=== PATIENT | male | born 1965 | race Two or more races ===

== ENCOUNTER 2022-12-25 04:30 | Day surgery (SDC) | payer BC ==
[2022-12-22 16:22] VITALS: BMI 34.7
[2022-12-25] MEDS ORDERED: ONDANSETRON 4 MG/2 ML VIAL IVPUSH PRN (06:43)
[2022-12-25] MEDS ORDERED: ACETAMINOPHEN 325 MG TABLET (FP) PO PRN (06:43)
[2022-12-25] MEDS ORDERED: oxyCODONE HCL 5 MG TABLET PO PRN (06:43)
[2022-12-25] MEDS ORDERED: LACTATED RINGERS SOLUTION 1,000 ML IV SCH (06:45)
[2022-12-25] MEDS ORDERED: LIDOCAINE HCL 1%, 10 MG/ML (10ML VIAL) MDV ONE ×2 (07:10→07:31)
[2022-12-25] MEDS ORDERED: BUPIVACAINE HCL/PF 0.5% (5MG/ML) 10 ML VIAL ONE (07:10)
[2022-12-25] MEDS ORDERED: PROPOFOL 40 ML ONE (07:18)
[2022-12-25] MEDS ORDERED: ceFAZolin SODIUM 1 GM VIAL ONE (07:18)
[2022-12-25] MEDS ORDERED: DEXAMETHASONE SOD PHOSPHATE 4 MG/1 ML VIAL ONE (07:18)
[2022-12-25] MEDS ORDERED: KETOROLAC TROMETHAMINE 30 MG/1 ML VIAL ONE (07:18)
[2022-12-25] MEDS ORDERED: MIDAZOLAM HCL 2 MG/2 ML SINGLE DOSE VIAL ONE (07:18)
[2022-12-25] MEDS ORDERED: ONDANSETRON 4 MG/2 ML VIAL ONE (07:18)
[2022-12-25] MEDS ORDERED: BUPIVACAINE HCL/PF 0.25% (2.5MG/ML) 10 ML VIAL ONE (07:31)
[2022-12-25] MEDS ORDERED: ceFAZolin SODIUM 1 GM VIAL IVPB ONE (07:40)
[2022-12-25] MEDS ORDERED: LIDOCAINE HCL/PF 2% SDV 5ML VIAL ONE (07:42)
[2022-12-25] MEDS ORDERED: BUPIVACAINE HCL/PF 0.25% (2.5MG/ML) 10 ML VIAL IJ ONE ×2 (07:52)
[2022-12-25] MEDS ORDERED: LIDOCAINE HCL 1%, 10 MG/ML (20ML VIAL) INF ONE ×2 (07:52)
[2022-12-25 09:25] VITALS: RESP 20; TEMP 97.8
[2022-12-25 09:30] VITALS: BP 125/82; PULSE 56
== END 2022-12-25 09:26 | disposition home or self-care (01) ==
LOC: JASU-SURG 04:30
PROVIDERS: ATTEND Student in an Organized Health Care Education/Training Program
PROC: 07BJ0ZX Excision of Left Inguinal Lymphatic, Open Approach, Diagnostic (ICD-10-PCS; principal; 2022-12-25 07:30)
DX: C85.15 Unspecified B-cell lymphoma, lymph nodes of inguinal region and lower limb (principal)
CPT/HCPCS: 88305-TC; 94760

== ENCOUNTER 2023-02-01 08:17 | Day surgery (SDC) | payer BC ==
[2023-02-01] MEDS ORDERED: FOSAPREPITANT DIMEGLUMINE 150 MG in SODIUM CHLORIDE 145 ML IVPB ONE (09:00)
[2023-02-01] MEDS ORDERED: ACETAMINOPHEN 325 MG TABLET (FP) PO ONE (09:00)
[2023-02-01] MEDS ORDERED: DEXAMETHASONE SODIUM PHOSPHATE 10 MG in SODIUM CHLORIDE 50 ML IVPB ONE (09:00)
[2023-02-01] MEDS ORDERED: PALONOSETRON HCL 0.25 MG/5 ML VIAL IVPUSH ONE (09:00)
[2023-02-01] MEDS ORDERED: SODIUM CHLORIDE 1,000 ML IV ONE (09:00)
[2023-02-01] MEDS ORDERED: diphenhydrAMINE HCL 25 MG CAPSULE (FP) PO ONE (09:00)
[2023-02-01] MEDS ORDERED: SODIUM CHLORIDE IVPB ONE ×2 (09:30→11:30)
[2023-02-01] MEDS ORDERED: RITUXIMAB ABBS IVPB ONE (09:30)
[2023-02-01 10:00] LABS: BASO % 0.4 % (0-2.0); EOS % 4.6 % (0-4.5); HEMATOCRIT 43.7 % (35.4-49); LYMPH % 29.4 % (8-40); MCH 30.2 pg (25.7-33.7); MCHC 34.3 g/dl (32.0-35.9); MEAN CELL VOLUME 88.3 fl (80-96); MEAN PLT VOLUME 9.3 fl (7.5-11.1); MONO % 10.9 % (3.8-10.2); NEUT % 54.7 % (42.8-82.8); PLATELET COUNT 235 10^3/uL (134-434); RBC 4.95 M/mm3 (4.00-5.60); RDW 13.9 % (11.9-15.9); WHITE BLOOD COUNT 6.1 K/mm3 (4.0-10.0)
[2023-02-01 10:19] LABS: CALCIUM 9.2 mg/dL (8.5-10.1)
[2023-02-01 10:20] LABS: ALBUMIN 3.7 g/dl (3.4-5.0); BLOOD UREA NITROGEN 12.3 mg/dL (7-18)
[2023-02-01 10:22] LABS: BILIRUBIN,DIRECT 0.1 mg/dL (0.0-0.2); PHOSPHOROUS 2.6 mg/dL (2.5-4.9); URIC ACID 7.1 mg/dL (2.6-7.2)
[2023-02-01 10:24] LABS: BILIRUBIN,TOTAL 0.3 mg/dL (0.2-1); TOT PROT 6.9 g/dl (6.4-8.2)
[2023-02-01] MEDS ORDERED: DOXOrubicin HCL 50 MG/25 ML VIAL IV ONE (11:00)
[2023-02-01] MEDS ORDERED: CYCLOPHOSPHAMIDE IVPB ONE (11:30)
[2023-02-01] MEDS ORDERED: vinCRIStine SULFATE 2 MG in SODIUM CHLORIDE 25 ML IVPB ONE (12:00)
[2023-02-01] MEDS ORDERED: POTASSIUM CHLORIDE 10 MEQ, MAGNESIUM SULFATE 1 GM in SODIUM CHLORIDE 1,000 ML IVPB ONE (12:00)
[2023-02-01] MEDS ORDERED: PORTA CATH FLUSH 10 ML IVPUSH PRN (17:22)
[2023-02-01 17:33] VITALS: RESP 19
[2023-02-01 18:50] VITALS: BP 155/89; PULSE 73; TEMP 98.1
== END 2023-02-01 18:50 | disposition home or self-care (01) ==
LOC: JONCCHEMO 08:17
PROVIDERS: ATTEND Internal Medicine Hematology & Oncology
DX: Z51.11 Encounter for antineoplastic chemotherapy (principal); C85.15 Unspecified B-cell lymphoma, lymph nodes of inguinal region and lower limb
CPT/HCPCS: 36415; 80053; 80076; 83615; 84100; 84550; 85025; 96367; 96375; 96411; 96413; 96415; 96417; J1453; J2469; J9070; J9370; Q5115

== ENCOUNTER 2023-02-02 13:13 | Day surgery (SDC) | payer BC ==
[~2023-02-02 13:13] MED LIST: PEGFILGRASTIM-CBQV (UDENYCA) 6 MG/0.6 ML SYRINGE SQ ONE
[2023-02-02 16:16] VITALS: BP 151/92; PULSE 68; RESP 18; TEMP 98
== END 2023-02-02 16:10 | disposition home or self-care (01) ==
LOC: JONCCHEMO 13:13
PROVIDERS: ATTEND Internal Medicine Hematology & Oncology
PROC: 3E013GC Introduction of Other Therapeutic Substance into Subcutaneous Tissue, Percutaneous Approach (ICD-10-PCS; principal; 2023-02-02)
DX: C85.15 Unspecified B-cell lymphoma, lymph nodes of inguinal region and lower limb (principal); Z76.89 Persons encountering health services in other specified circumstances
CPT/HCPCS: 96372; Q5111

== ENCOUNTER 2023-02-22 07:36 | Day surgery (SDC) | payer BC ==
[2023-02-22] MEDS ORDERED: SODIUM CHLORIDE 1,000 ML IV ONE (08:15)
[2023-02-22] MEDS ORDERED: ACETAMINOPHEN 325 MG TABLET (FP) PO ONE (08:45)
[2023-02-22] MEDS ORDERED: PALONOSETRON HCL 0.25 MG/5 ML VIAL IVPUSH ONE (08:45)
[2023-02-22] MEDS ORDERED: diphenhydrAMINE HCL 25 MG CAPSULE (FP) PO ONE (08:45)
[2023-02-22] MEDS ORDERED: DEXAMETHASONE SODIUM PHOSPHATE 10 MG in SODIUM CHLORIDE 50 ML IVPB ONE (08:45)
[2023-02-22] MEDS ORDERED: FOSAPREPITANT DIMEGLUMINE 150 MG in SODIUM CHLORIDE 145 ML IVPB ONE (08:45)
[2023-02-22 08:50] LABS: BASO % 1.4 % (0-2.0); EOS % 0.6 % (0-4.5); HEMATOCRIT 40.9 % (35.4-49); HEMOGLOBIN 14.1 GM/dL (11.7-16.9); MCH 30.2 pg (25.7-33.7); MCHC 34.5 g/dl (32.0-35.9); MEAN CELL VOLUME 87.7 fl (80-96); MEAN PLT VOLUME 8.6 fl (7.5-11.1); MONO % 12.9 % (3.8-10.2); NEUT % 47.1 % (42.8-82.8); PLATELET COUNT 522 10^3/uL (134-434); RBC 4.66 M/mm3 (4.00-5.60); RDW 13.9 % (11.9-15.9); WHITE BLOOD COUNT 11.8 K/mm3 (4.0-10.0)
[2023-02-22 08:59] LABS: POTASSIUM 4.4 mmol/L (3.5-5.1)
[2023-02-22 09:01] LABS: CALCIUM 9.3 mg/dL (8.5-10.1)
[2023-02-22 09:02] LABS: ALBUMIN 3.5 g/dl (3.4-5.0); BLOOD UREA NITROGEN 13.3 mg/dL (7-18)
[2023-02-22 09:04] LABS: BILIRUBIN,DIRECT 0.1 mg/dL (0.0-0.2)
[2023-02-22 09:05] LABS: CREATININE 1.1 mg/dL (0.55-1.3); PHOSPHOROUS 3.6 mg/dL (2.5-4.9)
[2023-02-22 09:06] LABS: TOT PROT 7.3 g/dl (6.4-8.2)
[2023-02-22 09:07] LABS: BILIRUBIN,TOTAL 0.3 mg/dL (0.2-1)
[2023-02-22 09:11] LABS: URIC ACID 5.9 mg/dL (2.6-7.2)
[2023-02-22] MEDS ORDERED: RITUXIMAB ABBS IVPB ONE (09:15)
[2023-02-22] MEDS ORDERED: SODIUM CHLORIDE IVPB ONE ×2 (09:15→12:30)
[2023-02-22] MEDS ORDERED: DOXOrubicin HCL 50 MG/25 ML VIAL IV ONE (12:15)
[2023-02-22] MEDS ORDERED: CYCLOPHOSPHAMIDE IVPB ONE (12:30)
[2023-02-22] MEDS ORDERED: vinCRIStine SULFATE 2 MG in SODIUM CHLORIDE 25 ML IVPB ONE (13:00)
[2023-02-22] MEDS ORDERED: POTASSIUM CHLORIDE 10 MEQ, MAGNESIUM SULFATE 1 GM in SODIUM CHLORIDE 1,000 ML IVPB ONE (13:15)
[2023-02-22] MEDS ORDERED: PORTA CATH FLUSH 10 ML IVPUSH PRN (16:42)
[2023-02-22 17:00] VITALS: RESP 20; TEMP 98.4
[2023-02-22 18:14] VITALS: BP 148/84; PULSE 83
== END 2023-02-22 18:15 | disposition home or self-care (01) ==
LOC: JONCCHEMO 07:36 → J7W 07:36 → JONCCHEMO 18:15
PROVIDERS: ATTEND Internal Medicine Hematology & Oncology
DX: Z51.11 Encounter for antineoplastic chemotherapy (principal); C83.35 Diffuse large B-cell lymphoma, lymph nodes of inguinal region and lower limb
CPT/HCPCS: 36415; 80048; 80076; 83615; 84100; 84550; 85025; 96367; 96375; 96413; 96415; 96417; J1453; J2469; J9070; J9370; Q5115

== ENCOUNTER 2023-02-23 13:45 | Day surgery (SDC) | payer BC ==
[2023-02-23 18:14] VITALS: BP 157/94; PULSE 75; RESP 20; TEMP 97.9
== END 2023-02-23 16:25 | disposition home or self-care (01) ==
LOC: JONCCHEMO 13:45
PROVIDERS: ATTEND Internal Medicine Hematology & Oncology
PROC: 3E013GC Introduction of Other Therapeutic Substance into Subcutaneous Tissue, Percutaneous Approach (ICD-10-PCS; principal; 2023-02-23)
DX: C83.35 Diffuse large B-cell lymphoma, lymph nodes of inguinal region and lower limb (principal); Z76.89 Persons encountering health services in other specified circumstances
CPT/HCPCS: 96372; Q5111

== ENCOUNTER 2023-03-15 07:49 | Day surgery (SDC) | payer BC ==
[2023-03-15 07:57] LABS: BASO % 1.2 % (0-2.0); HEMATOCRIT 37.5 % (35.4-49); HEMOGLOBIN 13.5 GM/dL (11.7-16.9); LYMPH % 39.4 % (8-40); MCH 31.5 pg (25.7-33.7); MCHC 35.9 g/dl (32.0-35.9); MEAN CELL VOLUME 87.9 fl (80-96); MEAN PLT VOLUME 8.2 fl (7.5-11.1); MONO % 12.4 % (3.8-10.2); PLATELET COUNT 339 10^3/uL (134-434); RBC 4.27 M/mm3 (4.00-5.60); RDW 14.7 % (11.9-15.9); WHITE BLOOD COUNT 8.5 K/mm3 (4.0-10.0)
[2023-03-15 08:11] LABS: POTASSIUM 4.2 mmol/L (3.5-5.1)
[2023-03-15 08:14] LABS: ALBUMIN 3.7 g/dl (3.4-5.0); BLOOD UREA NITROGEN 7.9 mg/dL (7-18); CALCIUM 8.9 mg/dL (8.5-10.1)
[2023-03-15 08:16] LABS: BILIRUBIN,DIRECT 0.1 mg/dL (0.0-0.2)
[2023-03-15 08:17] LABS: CREATININE 0.9 mg/dL (0.55-1.3); PHOSPHOROUS 3.1 mg/dL (2.5-4.9); URIC ACID 5.6 mg/dL (2.6-7.2)
[2023-03-15 08:18] LABS: BILIRUBIN,TOTAL 0.4 mg/dL (0.2-1)
[2023-03-15] MEDS ORDERED: SODIUM CHLORIDE 1,000 ML IV ONE (09:00)
[2023-03-15] MEDS ORDERED: DEXAMETHASONE SODIUM PHOSPHATE 10 MG in SODIUM CHLORIDE 50 ML IVPB ONE (09:30)
[2023-03-15] MEDS ORDERED: FOSAPREPITANT DIMEGLUMINE 150 MG in SODIUM CHLORIDE 145 ML IVPB ONE (09:30)
[2023-03-15] MEDS ORDERED: diphenhydrAMINE HCL 25 MG CAPSULE (FP) PO ONE (09:30)
[2023-03-15] MEDS ORDERED: ACETAMINOPHEN 325 MG TABLET (FP) PO ONE (09:30)
[2023-03-15] MEDS ORDERED: PALONOSETRON HCL 0.25 MG/5 ML VIAL IVPUSH ONE (09:30)
[2023-03-15] MEDS ORDERED: RITUXIMAB ABBS IVPB ONE (10:00)
[2023-03-15] MEDS ORDERED: SODIUM CHLORIDE IVPB ONE ×2 (10:00→13:30)
[2023-03-15] MEDS ORDERED: DOXOrubicin HCL 50 MG/25 ML VIAL IV ONE (13:00)
[2023-03-15] MEDS ORDERED: CYCLOPHOSPHAMIDE IVPB ONE (13:30)
[2023-03-15] MEDS ORDERED: vinCRIStine SULFATE 2 MG in SODIUM CHLORIDE 25 ML IVPB ONE (14:00)
[2023-03-15] MEDS ORDERED: POTASSIUM CHLORIDE 10 MEQ, MAGNESIUM SULFATE 1 GM in SODIUM CHLORIDE 1,000 ML IVPB ONE (14:30)
[2023-03-15] MEDS ORDERED: ONDANSETRON 4 MG/2 ML VIAL IVPB ONE (17:15)
[2023-03-15] MEDS ORDERED: PORTA CATH FLUSH 10 ML IVPUSH PRN (18:42)
[2023-03-15 18:43] VITALS: RESP 20
[2023-03-15 18:51] VITALS: BP 132/73; PULSE 74; TEMP 98
== END 2023-03-15 18:05 | disposition home or self-care (01) ==
LOC: JONCCHEMO 07:49 → J7W 07:49 → JONCCHEMO 18:05
PROVIDERS: ATTEND Internal Medicine Hematology & Oncology
DX: Z51.11 Encounter for antineoplastic chemotherapy (principal); C83.35 Diffuse large B-cell lymphoma, lymph nodes of inguinal region and lower limb
CPT/HCPCS: 36415; 80048; 80076; 83615; 84100; 84550; 85025; 96366; 96367; 96375; 96411; 96413; 96415; 96417; J1453; J2469; J9070; J9370; Q5115

== ENCOUNTER 2023-03-16 15:48 | Day surgery (SDC) | payer BC ==
[2023-03-16 18:04] VITALS: BP 133/79; PULSE 71; RESP 20; TEMP 98.4
== END 2023-03-16 15:55 | disposition home or self-care (01) ==
LOC: JONCCHEMO 15:48
PROVIDERS: ATTEND Internal Medicine Hematology & Oncology
PROC: 3E013GC Introduction of Other Therapeutic Substance into Subcutaneous Tissue, Percutaneous Approach (ICD-10-PCS; principal; 2023-03-16)
DX: C83.35 Diffuse large B-cell lymphoma, lymph nodes of inguinal region and lower limb (principal); Z76.89 Persons encountering health services in other specified circumstances
CPT/HCPCS: 96372; Q5111

== ENCOUNTER 2023-04-05 07:26 | Day surgery (SDC) | payer BC ==
[2023-04-05 07:42] LABS: BASO % 1.2 % (0-2.0); EOS % 1.1 % (0-4.5); HEMATOCRIT 37.3 % (35.4-49); HEMOGLOBIN 13.1 GM/dL (11.7-16.9); LYMPH % 33.5 % (8-40); MCH 31.7 pg (25.7-33.7); MCHC 35.1 g/dl (32.0-35.9); MEAN CELL VOLUME 90.3 fl (80-96); MEAN PLT VOLUME 7.9 fl (7.5-11.1); MONO % 10.4 % (3.8-10.2); NEUT % 53.8 % (42.8-82.8); PLATELET COUNT 342 10^3/uL (134-434); RBC 4.13 M/mm3 (4.00-5.60); RDW 17.4 % (11.9-15.9); WHITE BLOOD COUNT 8.8 K/mm3 (4.0-10.0)
[2023-04-05 07:55] LABS: POTASSIUM 3.7 mmol/L (3.5-5.1)
[2023-04-05 07:58] LABS: ALBUMIN 3.7 g/dl (3.4-5.0); CALCIUM 9.1 mg/dL (8.5-10.1)
[2023-04-05 07:59] LABS: BLOOD UREA NITROGEN 7.8 mg/dL (7-18)
[2023-04-05 08:01] LABS: BILIRUBIN,DIRECT 0.1 mg/dL (0.0-0.2); CREATININE 1.1 mg/dL (0.55-1.3); PHOSPHOROUS 3.5 mg/dL (2.5-4.9)
[2023-04-05 08:03] LABS: BILIRUBIN,TOTAL 0.3 mg/dL (0.2-1); TOT PROT 6.7 g/dl (6.4-8.2)
[2023-04-05 08:06] LABS: URIC ACID 6.4 mg/dL (2.6-7.2)
[2023-04-05] MEDS ORDERED: SODIUM CHLORIDE 1,000 ML IV ONE (08:15)
[2023-04-05] MEDS ORDERED: diphenhydrAMINE HCL 25 MG CAPSULE (FP) PO ONE (09:00)
[2023-04-05] MEDS ORDERED: PALONOSETRON HCL 0.25 MG/5 ML VIAL IVPUSH ONE (09:00)
[2023-04-05] MEDS ORDERED: ACETAMINOPHEN 325 MG TABLET (FP) PO ONE (09:00)
[2023-04-05] MEDS ORDERED: FOSAPREPITANT DIMEGLUMINE 150 MG in SODIUM CHLORIDE 145 ML IVPB ONE (09:00)
[2023-04-05] MEDS ORDERED: DEXAMETHASONE SODIUM PHOSPHATE 10 MG in SODIUM CHLORIDE 50 ML IVPB ONE (09:00)
[2023-04-05] MEDS ORDERED: SODIUM CHLORIDE IVPB ONE ×3 (09:30→13:00)
[2023-04-05] MEDS ORDERED: RITUXIMAB ABBS IVPB ONE (09:30)
[2023-04-05] MEDS ORDERED: DOXOrubicin HCL 50 MG/25 ML VIAL IV ONE (12:00)
[2023-04-05] MEDS ORDERED: vinCRIStine SULFATE 2 MG in SODIUM CHLORIDE 25 ML IVPB ONE (12:15)
[2023-04-05] MEDS ORDERED: CYCLOPHOSPHAMIDE IVPB ONE (12:30)
[2023-04-05] MEDS ORDERED: MAGNESIUM SULFATE IVPB ONE (13:00)
[2023-04-05] MEDS ORDERED: POTASSIUM CHLORIDE IVPB ONE (13:00)
[2023-04-05 16:46] VITALS: RESP 18; TEMP 97.7
[2023-04-05 17:13] VITALS: BP 139/81; PULSE 68
[2023-04-05] MEDS ORDERED: PORTA CATH FLUSH 10 ML IVPUSH PRN (17:13)
== END 2023-04-05 16:45 | disposition home or self-care (01) ==
LOC: JONCCHEMO 07:26 → J7W 07:27 → JONCCHEMO 16:45
PROVIDERS: ATTEND Internal Medicine Hematology & Oncology
DX: Z51.11 Encounter for antineoplastic chemotherapy (principal); C83.35 Diffuse large B-cell lymphoma, lymph nodes of inguinal region and lower limb
CPT/HCPCS: 36415; 80048; 80076; 83615; 84100; 84550; 85025; 96367; 96375; 96411; 96413; 96415; 96417; J1453; J2469; J9070; J9370; Q5115

== ENCOUNTER 2023-04-06 16:50 | Day surgery (SDC) | payer BC ==
[2023-04-06 18:20] VITALS: BP 147/86; PULSE 69; RESP 20; TEMP 98.1
== END 2023-04-06 17:48 | disposition home or self-care (01) ==
LOC: JONCCHEMO 16:50 → J7W 16:50 → JONCCHEMO 17:48
PROVIDERS: ATTEND Internal Medicine Hematology & Oncology
PROC: 3E013GC Introduction of Other Therapeutic Substance into Subcutaneous Tissue, Percutaneous Approach (ICD-10-PCS; principal; 2023-04-06)
DX: C83.35 Diffuse large B-cell lymphoma, lymph nodes of inguinal region and lower limb (principal); Z76.89 Persons encountering health services in other specified circumstances
CPT/HCPCS: 96372; Q5111

== ENCOUNTER 2023-04-26 07:20 | Day surgery (SDC) | payer BC ==
[2023-04-26 07:58] LABS: BASO % 1.3 % (0-2.0); HEMATOCRIT 37.1 % (35.4-49); HEMOGLOBIN 12.6 GM/dL (11.7-16.9); LYMPH % 31.7 % (8-40); MCHC 33.9 g/dl (32.0-35.9); MEAN CELL VOLUME 94.5 fl (80-96); MEAN PLT VOLUME 8.7 fl (7.5-11.1); MONO % 14.8 % (3.8-10.2); NEUT % 51.2 % (42.8-82.8); PLATELET COUNT 365 10^3/uL (134-434); RBC 3.92 M/mm3 (4.00-5.60); RDW 17.9 % (11.9-15.9); WHITE BLOOD COUNT 7.8 K/mm3 (4.0-10.0)
[2023-04-26 08:29] LABS: CHLORIDE 109 mmol/L (98-107); POTASSIUM 4.1 mmol/L (3.5-5.1); SODIUM 143 mmol/L (136-145)
[2023-04-26 08:37] LABS: ALBUMIN 3.4 g/dl (3.4-5.0); ANION GAP 5 MMOL/L (8-16); BLOOD UREA NITROGEN 10.4 mg/dL (7-18); CO2 29 mmol/L (21-32); GLUCOSE,RANDOM 110 mg/dL (74-106)
[2023-04-26 08:39] LABS: SGPT/ALT 33 U/L (13-61); URIC ACID 7.4 mg/dL (2.6-7.2)
[2023-04-26 08:40] LABS: BILIRUBIN,DIRECT < 0.1 mg/dL (0.0-0.2); LDH 153 U/L (87-246); PHOSPHOROUS 3.4 mg/dL (2.5-4.9); SGOT/AST 17 U/L (15-37)
[2023-04-26 08:46] LABS: ALK PHOS 78 U/L (45-117); BILIRUBIN,TOTAL 0.4 mg/dL (0.2-1); TOT PROT 6.5 g/dl (6.4-8.2)
[2023-04-26] MEDS ORDERED: SODIUM CHLORIDE 1,000 ML IV ONE (09:00)
[2023-04-26] MEDS ORDERED: ACETAMINOPHEN 325 MG TABLET (FP) PO ONE (09:30)
[2023-04-26] MEDS ORDERED: FOSAPREPITANT DIMEGLUMINE 150 MG in SODIUM CHLORIDE 145 ML IVPB ONE (09:30)
[2023-04-26] MEDS ORDERED: PALONOSETRON HCL 0.25 MG/5 ML VIAL IVPUSH ONE (09:30)
[2023-04-26] MEDS ORDERED: DEXAMETHASONE SODIUM PHOSPHATE 10 MG in SODIUM CHLORIDE 50 ML IVPB ONE (09:30)
[2023-04-26] MEDS ORDERED: diphenhydrAMINE HCL 25 MG CAPSULE (FP) PO ONE (09:30)
[2023-04-26] MEDS ORDERED: RITUXIMAB ABBS IVPB ONE (10:00)
[2023-04-26] MEDS ORDERED: SODIUM CHLORIDE IVPB ONE ×2 (10:00→14:15)
[2023-04-26] MEDS ORDERED: DOXOrubicin HCL 50 MG/25 ML VIAL IV ONE (14:00)
[2023-04-26] MEDS ORDERED: CYCLOPHOSPHAMIDE IVPB ONE (14:15)
[2023-04-26] MEDS ORDERED: vinCRIStine SULFATE 2 MG in SODIUM CHLORIDE 25 ML IVPB ONE (14:45)
[2023-04-26] MEDS ORDERED: MAGNESIUM 1GM/D5W - 1 GM/100 ML IVPB IVPB ONE (15:00)
[2023-04-26] MEDS ORDERED: SODIUM CHLORIDE 1,000 ML IVPB ONE (15:00)
[2023-04-26] MEDS ORDERED: KCL 10 MEQ IVPB 10 MEQ/100 ML INFUS.BAG IVPB ONE (15:00)
[2023-04-26 17:48] VITALS: RESP 18; TEMP 98.4
[2023-04-26] MEDS ORDERED: PORTA CATH FLUSH 10 ML IVPUSH PRN (17:48)
[2023-04-26 17:50] VITALS: BP 145/79; PULSE 78
== END 2023-04-26 17:20 | disposition home or self-care (01) ==
LOC: JONCCHEMO 07:20 → J7W 07:26 → JONCCHEMO 17:20
PROVIDERS: ATTEND Internal Medicine Hematology & Oncology
PROC: 3E04305 Introduction of Other Antineoplastic into Central Vein, Percutaneous Approach (ICD-10-PCS; principal; 2023-04-26)
PROC: 3E0437Z Introduction of Electrolytic and Water Balance Substance into Central Vein, Percutaneous Approach (ICD-10-PCS; 2023-04-26)
PROC: 3E043GC Introduction of Other Therapeutic Substance into Central Vein, Percutaneous Approach (ICD-10-PCS; 2023-04-26)
DX: Z51.11 Encounter for antineoplastic chemotherapy (principal); C83.35 Diffuse large B-cell lymphoma, lymph nodes of inguinal region and lower limb
CPT/HCPCS: 36415; 80048; 80076; 83615; 84100; 84550; 85025; 96361; 96367; 96375; 96409; 96411; 96413; 96415; 96417; J1453; J2469; J9070; J9370; Q5115

== ENCOUNTER 2023-04-27 15:20 | Day surgery (SDC) | payer BC ==
[2023-04-27 16:57] VITALS: BP 153/84; PULSE 79; RESP 20; TEMP 98.4
== END 2023-04-27 15:40 | disposition home or self-care (01) ==
LOC: JONCCHEMO 15:20
PROVIDERS: ATTEND Internal Medicine Hematology & Oncology
PROC: 3E013GC Introduction of Other Therapeutic Substance into Subcutaneous Tissue, Percutaneous Approach (ICD-10-PCS; principal; 2023-04-27)
DX: Z76.89 Persons encountering health services in other specified circumstances (principal); C83.35 Diffuse large B-cell lymphoma, lymph nodes of inguinal region and lower limb
CPT/HCPCS: 96372; Q5111

== ENCOUNTER 2023-05-17 07:17 | Day surgery (SDC) | payer BC ==
[2023-05-17 07:25] LABS: BASO % 1.1 % (0-2.0); EOS % 1.4 % (0-4.5); HEMATOCRIT 36.5 % (35.4-49); HEMOGLOBIN 12.5 GM/dL (11.7-16.9); LYMPH % 32.1 % (8-40); MCH 32.8 pg (25.7-33.7); MCHC 34.2 g/dl (32.0-35.9); MEAN CELL VOLUME 95.9 fl (80-96); MEAN PLT VOLUME 8.4 fl (7.5-11.1); MONO % 13.2 % (3.8-10.2); NEUT % 52.2 % (42.8-82.8); PLATELET COUNT 329 10^3/uL (134-434); RBC 3.81 M/mm3 (4.00-5.60); RDW 16.6 % (11.9-15.9); WHITE BLOOD COUNT 7.8 K/mm3 (4.0-10.0)
[2023-05-17] MEDS ORDERED: RITUXIMAB ABBS IVPB ONE (07:45)
[2023-05-17] MEDS ORDERED: MAGNESIUM 1GM/D5W - 1 GM/100 ML IVPB IVPB ONE ×2 (07:45→12:00)
[2023-05-17] MEDS ORDERED: SODIUM CHLORIDE IVPB ONE ×2 (07:45→11:15)
[2023-05-17 07:46] LABS: CHLORIDE 118 mmol/L (98-107); POTASSIUM 4.2 mmol/L (3.5-5.1); SODIUM 146 mmol/L (136-145)
[2023-05-17 07:48] LABS: ALBUMIN 3.4 g/dl (3.4-5.0); ANION GAP 2 MMOL/L (8-16); CALCIUM 8.3 mg/dL (8.5-10.1); CO2 26 mmol/L (21-32)
[2023-05-17 07:49] LABS: BLOOD UREA NITROGEN 9.4 mg/dL (7-18); GLUCOSE,RANDOM 120 mg/dL (74-106)
[2023-05-17 07:51] LABS: CREATININE 1.1 mg/dL (0.55-1.3); PHOSPHOROUS 2.5 mg/dL (2.5-4.9); SGOT/AST 12 U/L (15-37); SGPT/ALT 29 U/L (13-61); URIC ACID 7.6 mg/dL (2.6-7.2)
[2023-05-17 07:52] LABS: BILIRUBIN,DIRECT < 0.1 mg/dL (0.0-0.2)
[2023-05-17 07:53] LABS: BILIRUBIN,TOTAL 0.1 mg/dL (0.2-1); TOT PROT 6.5 g/dl (6.4-8.2)
[2023-05-17 07:54] LABS: ALK PHOS 82 U/L (45-117)
[2023-05-17 07:59] LABS: LDH 146 U/L (87-246)
[2023-05-17] MEDS ORDERED: SODIUM CHLORIDE 1,000 ML IV ONE (08:00)
[2023-05-17] MEDS ORDERED: ACETAMINOPHEN 325 MG TABLET (FP) PO ONE (08:30)
[2023-05-17] MEDS ORDERED: FOSAPREPITANT DIMEGLUMINE 150 MG in SODIUM CHLORIDE 145 ML IVPB ONE (08:30)
[2023-05-17] MEDS ORDERED: diphenhydrAMINE HCL 25 MG CAPSULE (FP) PO ONE (08:30)
[2023-05-17] MEDS ORDERED: DEXAMETHASONE SODIUM PHOSPHATE 10 MG in SODIUM CHLORIDE 50 ML IVPB ONE (08:30)
[2023-05-17] MEDS ORDERED: PALONOSETRON HCL 0.25 MG/5 ML VIAL IVPUSH ONE (08:30)
[2023-05-17] MEDS ORDERED: DOXOrubicin HCL 50 MG/25 ML VIAL IV ONE (11:00)
[2023-05-17] MEDS ORDERED: CYCLOPHOSPHAMIDE IVPB ONE (11:15)
[2023-05-17] MEDS ORDERED: vinCRIStine SULFATE 2 MG in SODIUM CHLORIDE 25 ML IVPB ONE (11:45)
[2023-05-17] MEDS ORDERED: KCL 10 MEQ IVPB 10 MEQ/100 ML INFUS.BAG IVPB ONE (12:00)
[2023-05-17] MEDS ORDERED: SODIUM CHLORIDE 1,000 ML IVPB ONE (12:00)
[2023-05-17 16:48] VITALS: RESP 20; TEMP 97
[2023-05-17] MEDS ORDERED: PORTA CATH FLUSH 10 ML IVPUSH PRN (16:57)
[2023-05-17 16:58] VITALS: BP 175/99; PULSE 68
== END 2023-05-17 16:35 | disposition home or self-care (01) ==
LOC: JONCCHEMO 07:17 → J7W 07:18 → JONCCHEMO 16:35
PROVIDERS: ATTEND Internal Medicine Hematology & Oncology
DX: Z51.11 Encounter for antineoplastic chemotherapy (principal); C83.35 Diffuse large B-cell lymphoma, lymph nodes of inguinal region and lower limb
CPT/HCPCS: 36415; 80048; 80076; 83615; 84100; 84550; 85025; 96366; 96367; 96375; 96411; 96413; 96415; 96417; J1453; J2469; J9070; J9370; Q5115

== ENCOUNTER 2023-05-18 15:09 | Day surgery (SDC) | payer BC ==
[2023-05-18 17:12] VITALS: RESP 18
[2023-05-18 17:13] VITALS: BP 182/97; PULSE 81; TEMP 97.9
== END 2023-05-18 16:40 | disposition home or self-care (01) ==
LOC: JONCCHEMO 15:09 → J7W 15:09 → JONCCHEMO 16:40
PROVIDERS: ATTEND Internal Medicine Hematology & Oncology
PROC: 3E013GC Introduction of Other Therapeutic Substance into Subcutaneous Tissue, Percutaneous Approach (ICD-10-PCS; principal; 2023-05-18)
DX: C83.35 Diffuse large B-cell lymphoma, lymph nodes of inguinal region and lower limb (principal); Z76.89 Persons encountering health services in other specified circumstances
CPT/HCPCS: 96372; Q5111